=== PATIENT | female | born 1965 | race Caucasian/White ===

== ENCOUNTER 2016-11-05 10:22 | Observation (INO) | payer BC ==
[~2016-11-05] VITALS: Ht 154.9 cm; Wt 53.4 kg
[2016-11-05 11:38] LABS: HEMATOCRIT 47.4 % (36.0-46.0); MCH 31.2 PG (29.0-34.0); MCHC 34.4 G/DL (30.0-36.0); MCV 90.8 FL (83-99); MEAN PLAT.VOLUME 10.5 uM^3 (9.5-12.4); PLATELET COUNT 242 K/uL (156-360); RBC DIS.WIDTH-CV 12.3 % (11.8-14.6); RED BLOOD COUNT 5.22 M/uL (3.80-5.20); WHITE BLOOD COUNT 7.2 K/uL (4.1-10.2)
[2016-11-05 11:51] LABS: CHLORIDE 96 mEq/L (99-109); POTASSIUM 4.7 mEq/L (3.7-5.4); SODIUM 134 mEq/L (136-147)
[2016-11-05 11:53] LABS: GLUCOSE 94 mg/dL (70-99)
[2016-11-05 11:54] LABS: ANION GAP 9 MEQ/L (2-14)
[2016-11-05 11:57] LABS: GFR ESTIMATE (CALCULATED) > 59 mL/min/; UREA NITROGEN (BUN) 9 mg/dL (9-23)
[2016-11-05 12:00] LABS: TROP-I INTERPRETATION NEGATIVE; TROPONIN-I < 0.01 ng/mL (0.0-0.30)
[2016-11-05 14:06] LABS: TROP-I INTERPRETATION NEGATIVE; TROPONIN-I < 0.01 ng/mL (0.0-0.30)
[2016-11-05] MEDS ORDERED: PRAVASTATIN SOD80 MG PO (14:43)
[2016-11-05] MEDS ORDERED: HYDROCHLOROTH12.5 M3 PO (14:43)
[2016-11-05] MEDS ORDERED: AMLODIPINE BESYL5 MG PO (14:43)
[2016-11-05 15:14] VITALS: BP 142/85
[2016-11-05 19:20] VITALS: BP 119/70
[2016-11-05 19:47] LABS: TROP-I INTERPRETATION NEGATIVE; TROPONIN-I < 0.01 ng/mL (0.0-0.30)
[2016-11-05 23:20] VITALS: BP 127/70
[2016-11-06 01:00] LABS: TROP-I INTERPRETATION NEGATIVE; TROPONIN-I < 0.01 ng/mL (0.0-0.30)
[2016-11-06 07:37] VITALS: BP 102/64
[2016-11-06] MEDS ORDERED: LO-DOSE ASPIRIN81 M2 PO (09:27)
== END 2016-11-06 10:47 | disposition home or self-care (01) ==
LOC: EME 10:22 → EDOF 14:05 → 5WEST 15:10
PROVIDERS: Internal Medicine; Nurse Practitioner Family
DX: R07.89 Other chest pain (principal); R42 Dizziness and giddiness; R00.2 Palpitations; I10 Essential (primary) hypertension; E78.5 Hyperlipidemia, unspecified; E78.00 Pure hypercholesterolemia, unspecified; F17.210 Nicotine dependence, cigarettes, uncomplicated
CPT/HCPCS: 71020; 80048; 84484; 85027; 93005; 99281; 99284; G0378